=== PATIENT | male | born 1985 | race Caucasian/White ===

== ENCOUNTER 2018-05-23 01:35 | Emergency (ER) | payer MEDICARE ==
[~2018-05-23] VITALS: Ht 175.3 cm; Wt 75.0 kg
[2018-05-23 01:43] VITALS: Ht 175.3 cm; Wt 75.0 kg
[2018-05-23 02:50] VITALS: BP 129/77
== END 2018-05-23 02:50 | disposition home or self-care (01) ==
LOC: D.ER 01:35
DX: L02.413 Cutaneous abscess of right upper limb (principal)

== ENCOUNTER 2021-01-09 21:36 | Emergency (ER) | payer MEDICARE ==
[~2021-01-09] VITALS: Ht 175.3 cm; Wt 63.5 kg
[~2021-01-09 21:36] MED LIST: FLAGYL500 MG PO; VOLTAREN75 MG PO
[2021-01-09 21:41] VITALS: BP 135/88; Ht 175.3 cm; Wt 63.5 kg
[2021-01-09] MEDS ORDERED: IBUPROFEN800 MG PO (22:24)
== END 2021-01-09 22:37 | disposition home or self-care (01) ==
LOC: D.ER 21:36
DX: S63.501A Unspecified sprain of right wrist, initial encounter (principal); M79.641 Pain in right hand; E11.9 Type 2 diabetes mellitus without complications; W19.XXXA Unspecified fall, initial encounter; Y93.9 Activity, unspecified; Y92.9 Unspecified place or not applicable